=== PATIENT | male | born 1975 | race Asian ===

== ENCOUNTER 2019-03-16 00:13 | Emergency (ER) | payer OTHER ==
--- NOTE | 2019-03-16 00:44 | ED Physician Documentation ---
PD HPI UPPER EXT INJURY - Stated complaint Stated Complaint: RT ELBOW PAIN - Chief complaint Chief Complaint: Ext Problem - History obtained from History obtained from: Patient - History of Present Illness Location: Right, Elbow Type of injury: Fall (slipped and fell onto outstretchedRight hand and had onset of pain at the right elbow. He denies other injury. He has some swelling at the elbow and hurts for flexion but not necessarily extension. He is concerned about fracture.) Timing - onset: Today Timing - details: Abrupt onset, Still present Associated symptoms: Swelling. No: Weakness, Numbness Similar symptoms before: Has not had sx before Recently seen: Not recently seen Review of Systems Skin: denies: Abrasion (s), Laceration (s) Neurologic: denies: Altered mental status, Head injury PD PAST MEDICAL HISTORY - Past Medical History Cardiovascular: None Respiratory: None Musculoskeletal: None - Present Medications Home Medications: Ambulatory Orders Medication Instructions Recorded Confirmed No Known Home Medications 03/16/19 03/16/19 - Allergies Allergies/Adverse Reactions: Allergies Allergy/AdvReac Type Severity Reaction Status Date / Time No Known Drug Allergies Allergy Verified 03/16/19 00:21 PD ED PE NORMAL - Vitals Vital signs reviewed: Yes - General General: Alert and oriented X 3, Well developed/nourished - Derm Derm: Normal color, Warm and dry - Extremities Extremities: Other (right elbow with some effusion, limited ROM particularly full flexion. Does extension okay. Wrist not tender. ) Results - Vitals Vitals: Vital Signs - 24 hr 03/16/19 03/16/19 00:17 02:02 Temperature 37.0 C 36.7 C Heart Rate 76 67 Respiratory 18 16 Rate Blood Pressure 128/80 120/81 H O2 Saturation 98 97 Oxygen O2 Source Room air - Rads (name of study) right elbow Radiology: Prelim report reviewed (no fractures; positive effusion) PD MEDICAL DECISION MAKING - ED course Complexity details: reviewed results (no fractures), considered differential, d/w patient Departure - Departure Disposition: 01 Home, Self Care Clinical Impression: Fall from slip, trip, or stumble Qualifiers: Encounter type: initial encounter Qualified Code(s): W01.0XXA - Fall on same level from slipping, tripping and stumbling without subsequent striking against object, initial encounter Strain of elbow Qualifiers: Encounter type: initial encounter Laterality: right Qualified Code(s): S46.911A - Strain of unspecified muscle, fascia and tendon at shoulder and upper arm level, right arm, initial encounter Condition: Stable Record reviewed to determine appropriate education?: Yes Instructions: ED Sprain Elbow Follow-Up: Isauro Duong MD [Provider Admit Priv/Credential] - Comments: There are no fractures seen on x-ray. There is swelling in the joint. This can represent ligament injury in the elbow (sprain) or sometimes may represent small fracture that just is not seen on x-ray. Either would be treated with initially a sling and less use and activity with the elbow. A sprain should improve over several days to week or so. Recheck if not better in about a week. Use some ibuprofen or naproxen 2-3 times daily and add Tylenol if needed for pain. Discharge Date/Time: 03/16/19 02:05
[2019-03-16] MEDS ORDERED: HYDROcod/ACETAM 5/325 MG TABLET PO STA (00:54)
[2019-03-16] MEDS ORDERED: IBUPROFEN 600 MG TABLET PO STA (00:54)
--- NOTE | 2019-03-16 01:34 | XRAY Report ---
Reason: fall onto hand, with elbow injury Procedure Date: 03/16/2019 Accession Number: [id number] / [id number] Procedure: XR - Elbow 3 View RT CPT Code: FULL RESULT: EXAM: RIGHT ELBOW RADIOGRAPHY EXAM DATE: 03/16/2019 12:58 AM. CLINICAL HISTORY: Fall onto hand, with elbow injury. COMPARISON: None. TECHNIQUE: Multiple views. FINDINGS: Bones: Normal. No fractures or bone lesions. Joints: Elbow joint effusion. Soft Tissues: Soft tissue swelling. No foreign body. IMPRESSION: Soft tissue swelling and elbow joint effusion, but no evidence of acute fracture. [facility]
[2019-03-16 02:03] VITALS: BP 120/81
== END 2019-03-16 02:05 | disposition home or self-care (01) ==
LOC: ED 00:13
DX: S46.911A Strain of unspecified muscle, fascia and tendon at shoulder and upper arm level, right arm, initial encounter (principal); W01.0XXA Fall on same level from slipping, tripping and stumbling without subsequent striking against object, initial encounter; Y93.67 Activity, basketball; Y92.310 Basketball court as the place of occurrence of the external cause
CPT/HCPCS: 73080; 99282; 99283; A9270